=== PATIENT | male | born 1945 | race Caucasian/White ===

== ENCOUNTER 2016-11-23 19:43 | Emergency (ER) | payer MEDICARE, OTHER ==
[~2016-11-23] VITALS: Ht 167.6 cm; Wt 83.0 kg
[~2016-11-23 19:43] MED LIST: CLEAPOW6 PO; DILA100C PO; DOCU50SY2 PO; LACT20SO4 PO; LIDO5T TOP; LORA1TAB PO; MAGN420T PO; MELO15 PO; OXYC20TA PO; PHEN30TA32 PO; PRED1SOL OP; SUMA6P SQ; VERA80TA PO; Z.0.OXYGEN INH
[2016-11-23 19:51] VITALS: BP 126/59; PULSE 59; RESP 16; TEMP 97.7; O2SAT 93
[2016-11-23 20:10] VITALS: BP 131/58; PULSE 64; RESP 16; O2SAT 98
[2016-11-23] MEDS ORDERED: SUMA6P SQ (20:35)
[2016-11-23] MEDS ORDERED: NALO1TAB2 PO (20:35)
[2016-11-23] MEDS ORDERED: OMEP20CA2 (20:35)
[2016-11-23] MEDS ORDERED: LAMO200T PO (20:35)
[2016-11-23] MEDS ORDERED: ATOR10TA15 PO (20:35)
[2016-11-23] MEDS ORDERED: PRED1SOL (20:35)
[2016-11-23] MEDS ORDERED: [UNRECOGNIZED DRUG - CODE] SQ (20:35)
[2016-11-23] MEDS ORDERED: LINA290C PO (20:35)
[2016-11-23] MEDS ORDERED: VERA40TA PO (20:35)
[2016-11-23] MEDS ORDERED: VERA120T3 PO (20:35)
[2016-11-23] MEDS ORDERED: MAGN1TAB14 PO (20:35)
[2016-11-23] MEDS ORDERED: LIDO5DIS35 TOPICAL (20:35)
--- NOTE | 2016-11-23 21:29 | PD ---
Physical Exam Date Seen by Provider: Nov 23, 2016 Time Seen by Provider: 21:28 Data Data Last Documented VS Vital Signs Date Time Temp Pulse Resp B/P Pulse Ox O2 Delivery O2 Flow Rate FiO2 11/23/16 20:10 98 Room Air 11/23/16 20:10 64 16 131/58 11/23/16 19:[address] Brain W/O Iv Contrast(Rout) (11/23/16 ) Ct Cerv Spine W/O Contrast (11/23/16 ) Tetanus/Diphtheria Tox Adult (Tetanus/Di (11/23/16 21:30) Wound Care (11/23/16 21:28) Lidocai-Epi 1%-1:100,000 Inj (Xylocaine- (11/23/16 21:30) MDM Supervised Visit with [place]: No Narrative Course I was asked to evaluate this patient's laceration by Dr. Faulkner. Briefly this is a 71-year-old gentleman who had a syncopal episode and suffered a laceration in the process. On my exam the patient is alert and oriented. There is a 2.5 cm laceration on the posterior aspect of the left distal humerus. There is also an approximate 1 cm skin tear just proximal to this. Closed with Benzoin and Steri-Strips. Laceration repair was performed. Please see my procedure note for details. Dr. Faulkner retains care of this patient. Please see her note for disposition. Procedures Procedure Narrative LACERATION LOCATION: Posterior aspect of the left humerus LENGTH: 2.5 cm stellate NUMBER OF STITCHES/REMINGTON: 6 REPAIR: The area of the laceration was prepped with Betadine and sterilely draped. The laceration was infiltrated with 1% lidocaine with epinephrine. The wound was copiously irrigated and explored without evidence of foreign body , tendon injury or neurovascular injury. The wound was closed using 4-0 Prolene. This was a single layer repair. A sterile dressing was applied. The patient was advised to keep the dressing clean and dry. Patient tolerated the procedure well. Seda Kingston Nov 23, 2016 21:28
[2016-11-23] MEDS ORDERED: TETANUS/DIPHTHERIA TOXOID ADULT 0.5 ML VIAL IM ONE (21:30)
[2016-11-23] MEDS ORDERED: LIDOCAINE 1%/EPINEPHrine 1:100,000 SOLN 20 ML VIAL INFIL ONE (21:30)
--- NOTE | 2016-11-23 22:05 | PD ---
HPI Chief Complaint: Syncope/Near-Syncope Time Seen by Provider: 21:28 Travel History International Travel<30 days: No Contact w/Intl Traveler<30days: No Traveled to known affect area: No History of Present Illness HPI 71-year-old male presents to the emergency department by private transportation the care of his spouse for evaluation of laceration to the left forearm after a fall with reported syncope. According to the patient and his he has frequent falls due to his lack of vision and history of syncope and seizure disorder. Patient reportedly had been doing well all day long without any incidence or complaints. Patient reportedly had gone to his room to put on some socks and shoes so that he and his could go for a walk. states she was in the other room and heard a thud and thought perhaps he had run into a piece of furniture. Shortly thereafter within 1-2 minutes she heard him in the bathroom and he had yelled for her and she identified him to have bleeding from the left arm. He reported to her that he did have loss of consciousness. Here he reports that he had a syncopal episode of unsure duration but did hit his head and has some neck pain does not report any upper extremity or lower extremity numbness tingling or weakness. Patient has mild head pain and mild neck pain that he states is new since his fall. Patient denies any preceding chest pain palpitations sweats nausea vomiting shortness of breath abdominal pain back pain or a prodrome for seizure activity. Patient had no tongue trauma or bladder or bowel incontinence. Patient was apparently able to get up off the floor on his own and walk to the bathroom using objects in the room to assist him. Patient states he felt around after he found himself on the floor and identified the rest be bleeding from his arm and therefore was able to get up and call for help from his and they met in the bathroom where he was identified by his to have a laceration to his forearm. Last tetanus shot was greater than 5 years ago. Patient is followed by Dr. 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 Episode of syncope was at 7 PM. Patient's had seizure activity since 1969. Patient sustained laceration to his forearm from an oxygen concentrator. Patient went to urgent care and they referred him to the emergency department for further evaluation. Patient rates his arm pain as 7/10 in intensity without deformity. Distally extremity is neurovascular tendon intact without deformity or soft tissue swelling. Patient denies other injury. The chest pain no rib pain shortness of breath abdominal pain no back pain no pelvic pain no lower extremity pain or injury. Patient does not take any blood thinning agents. Patient has been compliant with his daily medications. states this happens all the time and if he hadn't sustained a laceration they would not come to the emergency department for evaluation. [facility] Past Medical History Narrative Medical Arthritis, seizure, brain lesions, CAD, cardiac catheterization, dyslipidemia, diminished hearing, prostate/testicular cancer chemotherapy, migraine/cluster headaches, bilateral eye removal with prostheses, orchiectomy, hip surgery; tobacco use; nursing notes reviewed Arthritis: Yes Autoimmune Disease: No Blood Disorders: No Cancer: Yes (PROSTATE) Cardiac Catheterization: Yes Cardiovascular Problems: Yes High Cholesterol: Yes Chemotherapy: Yes (1982) Coronary Artery Disease: Yes Diminished Hearing: Yes (bilat has aid) Endocrine: No Genitourinary: Yes (PROSTATE CANCER) Headaches: Yes (CLUSTER H/A) Hypertension: Yes Immune Disorder: No Implanted Vascular Access Dvce: Yes Musculoskeletal: Yes (DJD) Neurologic: Yes Psychiatric: No Reproductive: Yes (TESTICULAR CANCER) Respiratory: No Immunizations Current: Yes Migraines: Yes Radiation Therapy: No Seizures: Yes PNEUMOCCOCAL Vaccine (Year): 1 ?: Not Past Surgical History Body Medical Devices: LEFT ELBOW PINS Cardiac Surgery: Yes (HEART CATH 05/26) Eye Surgery: Yes (BILAT REMOVAL) Genitourinary Surgery: Yes (TESTICULAR CANCER) Joint Replacement: Yes (LEFT HIP) Other Surgery: Yes (LEFT TOTAL HIP 03/27) Social History Alcohol Use: No Tobacco Use: Yes (PIPE puff) Substance Use: No Allergies-Medications (Allergen,Severity, Reaction): Coded Allergies: Fentanyl (Verified Allergy, Severe, 11/23/16) DENIES ALLERGY, ADVERSE REACTION OF DROWSINESS, JITTERY AND CONFUSED. Opana (Verified Allergy, Severe, 11/23/16) DENIES ALLERGY. ADVERSE REACTION OF DROWSINESS, JITTERY AND CONFUSION Topiramate (Verified Allergy, Severe, 11/23/16) ADVERSE REACTION, DENIES ALLERGY. BECOMES "VERY TIRED" Zyvox (Verified Allergy, Severe, 11/23/16) Abilify (Verified Adverse Reaction, Severe, Confusion, 11/23/16) Augmentin (Verified Adverse Reaction, Severe, Diarrhea, 11/23/16) Keppra (Verified Adverse Reaction, Severe, Dizziness, 11/23/16) Klonopin (Verified Adverse Reaction, Severe, Confusion, 11/23/16) Doxycycline (Verified Adverse Reaction, Intermediate, Diarrhea, 11/23/16) Reported Meds & Prescriptions Reported Meds & Active Scripts Active Reported Omeprazole 20 Mg Cap Prednisolone Sodium Phospate Opth (Prednisolone Sodium Phosphate Opth) 1% Soln Imitrex Inj (Sumatriptan Succinate) 6 Mg/0.5 Ml Inj 6 Mg SQ ONCE PRN May repeat dose in 1 hour if needed. Lidoderm Patch 12 HR (Lidocaine) 5% Patch 1 Patch TOPICAL DAILY Remove patch after 12 hours Magnesium 400 Mg Tab 400 Mg PO DAILY Relistor Inj (Methylnaltrexone [place]) 12 Mg/0.6 Ml Inj 12 Mg SQ DAILY Linzess (Linaclotide) 290 Mcg Cap 290 Mcg PO DAILY Movantik (Naloxegol) 25 Mg Tab 25 Mg PO DAILY Atorvastatin (Atorvastatin Calcium) 10 Mg Tab 10 Mg PO HS Verapamil (Verapamil HCl) 120 Mg Tab 120 Mg PO Q8H Verapamil (Verapamil HCl) 40 Mg Tab 40 Mg PO Q8H Lamotrigine 200 Mg Tab 200 Mg PO BID Review of Systems Except as stated in HPI: all other systems reviewed are Neg General / Constitutional: No: Fever HENT: Positive: Headaches, Neck Pain (mild mild) Cardiovascular: No: Chest Pain or Discomfort, Palpitations, Diaphoresis Respiratory: No: Shortness of Breath, Wheezing Gastrointestinal: No: Nausea, Vomiting, Abdominal Pain Genitourinary: No: Dysuria Musculoskeletal: Positive: Pain (laceration left forearm), No: Myalgias, Arthralgias Skin: Positive Other (laceration left forearm) Neurologic: Positive: Syncope, Headache, No: Weakness, Dizziness, Focal Abnormalities, Change in Mentation, Slurred Speech, Paresthesia, Seizures Psychiatric: No: Anxiety Endocrine: No: Heat Intolerance (denies) Hematologic/Lymphatic: No: Easy Bruising Physical Exam Narrative GENERAL: Well-developed well-nourished male in no acute distress no respiratory distress GCS 15 SKIN: Warm and dry. HEAD: Atraumatic. Normocephalic. EYES: Bilateral globe prostheses. No scleral icterus. No injection or drainage. ENT: No nasal bleeding or discharge. Mucous membranes pink and moist. NECK: Trachea midline. No JVD. Midline no point tenderness to direct palpation along the cervical spine CARDIOVASCULAR: Regular rate and rhythm. Chest wall: Nontender to direct palpation no bony step-off. RESPIRATORY: No accessory muscle use. Clear to auscultation. Breath sounds equal bilaterally. GASTROINTESTINAL: Abdomen soft, non-tender, nondistended. Hepatic and splenic margins not palpable. MUSCULOSKELETAL: Extremities without clubbing, cyanosis, or edema. No obvious deformities. 4 cm linear laceration to the left proximal forearm NEUROLOGICAL: Awake and alert. No obvious cranial nerve deficits. Motor grossly within normal limits. Five out of 5 muscle strength in the arms and legs. Normal speech. PSYCHIATRIC: Appropriate mood and affect; insight and judgment normal. Data Data Last Documented VS Vital Signs Date Time Temp Pulse Resp B/P Pulse Ox O2 Delivery O2 Flow Rate FiO2 11/23/16 23:42 69 16 156/72 99 11/23/16 20:10 Room Air 11/23/16 19:[address] Brain W/O Iv Contrast(Rout) (11/23/16 ) Ct Cerv Spine W/O Contrast (11/23/16 ) Tetanus/Diphtheria Tox Adult (Tetanus/Di (11/23/16 21:30) Wound Care (11/23/16 21:28) Lidocai-Epi 1%-1:100,000 Inj (Xylocaine- (11/23/16 21:30) MDM Medical Decision Making Medical Screen Exam Complete: Yes Emergency Medical Condition: Yes Medical Record Reviewed: Yes Interpretation(s) CT cervical spine w/o contrast: CONCLUSION: Degenerative spondylosis without any significant compromise to the thecal sac or the exiting nerve roots. Peter Olivo MD on November 23, 2016 at 23:10 Board Certified Radiologist. This report was verified electronically. Last Impressions Head CT 11/23/16 0000 Signed Impressions: Service Date/Time: November 22:26 - CONCLUSION: Chronic and small vessel ischemic changes without any evidence for acute hemorrhage or mass effect. Peter Olivo MD Vital Signs Date Time Temp Pulse Resp B/P Pulse Ox O2 Delivery O2 Flow Rate FiO2 11/23/16 20:10 98 Room Air 11/23/16 20:10 64 16 131/58 98 Room Air 11/23/16 19:51 97.7 59 16 126/59 93 Differential Diagnosis Syncope, arrhythmia, seizure, minor CHI, ICH, cervical spine sprain strain fracture, laceration, fracture, contusion Narrative Course Tetanus status updated; imaging studies in the CT brain/CT cervical spine ordered cervical and laceration repair; patient desires no further evaluation or intervention. Imaging studies resulted and no additional or acute findings identified Patient stable for outpatient management and follow-up with his primary care provider Diagnosis Primary Impression: Head injury, closed, with brief LOC Additional Impressions: Cervical strain Qualified Code: S16.1XXA - Cervical strain, initial encounter Forearm laceration Qualified Code: S51.812A - Forearm laceration, left, initial encounter Referrals: Neurologist call for appointment Primary Care Physician call for appointment Patient Instructions: General Instructions Additional Instructions: Follow head injury precautions 24 hours Continue current medications as presently prescribed Follow wound care instructions with suture removal 5-7 days and wound check at 2 days Disposition: 01 DISCHARGE HOME Condition: Stable Marisela Faulkner MD Nov 23, 2016 22:04
--- NOTE | 2016-11-23 23:12 | RADHPO ---
EXAM DATE/TIME: 11/23/2016 22:26 [facility] COMPARISON: CT BRAIN W/O CONTRAST, December 15, 2014, 9:59. INDICATIONS : Trauma. Syncope. RADIATION DOSE: 59.07 CTDIvol (mGy) MEDICAL HISTORY : Seizures. Hypertension. Carcinoma, testicular.Carcinoma, prostate. SURGICAL HISTORY : None. ENCOUNTER: Initial ACUITY: 1 day PAIN SCALE: 2/10 LOCATION: occipital TECHNIQUE: Multiple contiguous axial images were obtained of the head. Using automated exposure control and adj ustment of the mA and/or kV according to patient size, radiation dose was kept as low as reasonably a chievable to obtain optimal diagnostic quality images. FINDINGS: There is no evidence for intracranial hemorrhage, mass effect, mass lesions, or edema. The visualize d bony structures appear intact. Moderate degree of brain atrophy is seen. Moderate periventricular white matter changes are seen nonspecific mostly consistent with chronic small vessel ischemic change s. There are no signs of acute infarction for technique. Bilateral orbital prostheses are seen. CONCLUSION: Chronic and small vessel ischemic changes without any evidence for acute hemorrhage o r mass effect. Peter Olivo MD on November 23, 2016 at 23:09 Board Certified Radiologist. This report was verified electronically.
--- NOTE | 2016-11-23 23:14 | RADHPO ---
EXAM DATE/TIME: 11/23/2016 22:26 [facility] COMPARISON: No previous studies available for comparison. INDICATIONS : Trauma. Syncope. Neck pain. RADIATION DOSE: 26.71 CTDIvol (mGy) MEDICAL HISTORY : Hypertension. Seizures. Carcinoma, prostate.Carcinoma, testicular. SURGICAL HISTORY : None. ENCOUNTER: Initial ACUITY: 1 day PAIN SCALE: 2/10 LOCATION: Bilateral neck TECHNIQUE: Volumetric scanning of the cervical spine was performed. Multiplanar reconstructions i n the sagittal, coronal and oblique axial planes were performed. Using automated exposure control a nd adjustment of the mA and/or kV according to patient size, radiation dose was kept as low as reason ably achievable to obtain optimal diagnostic quality images. FINDINGS: No significant subluxation or soft tissue swelling is seen. Degenerative spondylosis is present multi ple levels worse at C5-6 and C6-7. There is osteopenia without a clear fracture. C2-C3: No appreciable compromised to the thecal sac, exiting nerve roots are seen. The neural kaye swati are patent bilaterally. No appreciable thecal sac stenosis is seen. C3-C4: No appreciable compromised to the thecal sac, exiting nerve roots are seen. The neural kaye swati are patent bilaterally. No appreciable thecal sac stenosis is seen. C4-C5: No appreciable compromised to the thecal sac, exiting nerve roots are seen. The neural kaye swati are patent bilaterally. No appreciable thecal sac stenosis is seen. C5-C6: No appreciable compromised to the thecal sac, exiting nerve roots are seen. The neural kaye swati are patent bilaterally. No appreciable thecal sac stenosis is seen. C6-C7: No appreciable compromised to the thecal sac, exiting nerve roots are seen. The neural kaye swati are patent bilaterally. No appreciable thecal sac stenosis is seen. C7-T1: No appreciable compromised to the thecal sac, exiting nerve roots are seen. The neural kaye swati are patent bilaterally. No appreciable thecal sac stenosis is seen CONCLUSION: Degenerative spondylosis without any significant compromise to the thecal sac or the exit ing nerve roots. Peter Olivo MD on November 23, 2016 at 23:10 Board Certified Radiologist. This report was verified electronically.
[2016-11-23 23:42] VITALS: BP 156/72
== END 2016-11-23 23:44 | disposition home or self-care (01) ==
LOC: PHED 19:43
DX: S51.812A Laceration without foreign body of left forearm, initial encounter (principal); S06.9X1A Unspecified intracranial injury with loss of consciousness of 30 minutes or less, initial encounter; S16.1XXA Strain of muscle, fascia and tendon at neck level, initial encounter; I10 Essential (primary) hypertension; E78.00 Pure hypercholesterolemia, unspecified; H91.90 Unspecified hearing loss, unspecified ear; W18.39XA Other fall on same level, initial encounter; Y92.008 Other place in unspecified non-institutional (private) residence as the place of occurrence of the external cause; Z72.0 Tobacco use; Z23 Encounter for immunization; Z91.81 History of falling; Z86.69 Personal history of other diseases of the nervous system and sense organs; Z87.39 Personal history of other diseases of the musculoskeletal system and connective tissue; Z85.46 Personal history of malignant neoplasm of prostate; Z86.79 Personal history of other diseases of the circulatory system
CPT/HCPCS: 12001; 70450; 72125; 90471; 90714